=== PATIENT | female | born 1980 | race Two or more races ===

== ENCOUNTER 2019-12-06 08:22 | Emergency (ER) | payer SELFPAY ==
[~2019-12-06] VITALS: Ht 162.6 cm; Wt 90.7 kg
--- NOTE | 2019-12-06 08:40 | NUR ---
ED Nurse Note: patient brought into ED by wheelchair by her co-worker, patient reports she felt ill since 6am this morning, was not feeling like eating, patient reports she felt dizzy and weak, denies any syncopal / episode or fall or trauma. denies history of diabetes and htn. jada's blood sugar was 384, BP 178/118 and HR of 98 taken by co worker RN around 0815. patient is a/o x4 ambulatory, on a hospital gown, on a monitor tech.
[2019-12-06 08:41] VITALS: BP 157/88
--- NOTE | 2019-12-06 08:47 | Emergency Room Report ---
History of Present Illness General Chief Complaint: Dizziness Source: Patient Present Illness HPI Disclaimer: Please note that this report is being documented using DRAGON technology. This can lead to erroneous entry secondary to incorrect interpretation by the dictating instrument. HPI: 39-year-old female with history of depression presents for evaluation of lightheadedness, hyperglycemia and hypertension. Patient states she is been her usual state of health until this morning when she was slightly nauseous and did not eat breakfast. 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 She felt tremulous as well. Denied chills or recent fevers. Denied chest pain, palpitations, vomiting, diarrhea recent dysuria or hematuria. A fingerstick was checked showing elevated blood sugar reading in the 300s. She has no history of diabetes and takes no glucose controlling medication. Does not take antihypertensive medications but to stop blood pressure was found to be 180. She denies headache currently and feels better. PMH: Depression PSH: Denies Allergies: Denies Social Hx: Denies Allergies: Coded Allergies: No Known Allergies (Unverified , 12/06/19) Nursing Documentation-PMH Past Medical History: No Stated History Review of Systems All Other Systems: negative except mentioned in HPI Physical Exam Vital Signs Date Time Temp Pulse Resp B/P (MAP) Pulse Ox O2 Delivery O2 Flow Rate FiO2 12/06/19 08:41 98.0 69 19 157/88 99 Room Air General: Awake and alert, no acute distress HEENT: NC/AT. EOMI. PERRLA. No nystagmus. Moist mucous membranes Cardiovascular: RRR. S1 and S2 normal. No murmur appreciated Resp: Normal work of breathing. No cough, wheezing or crackles appreciated Abdomen: Abdomen is soft, nondistended. Nontender Skin: Intact. No abrasions, laceration or rash over the exposed skin MSK: Normal tone and bulk. Moving all extremities. No obvious deformity. Neuro: Awake and alert. Mentating appropriately. Medical Decision Making Diagnostic Impression: Primary Impression: Hyperglycemia ER Course 39-year-old female presents for evaluation of hypertension, hyperglycemia and lightheadedness. Lightheadedness now improved. She is asymptomatic and feels well though slightly fatigued. No prior history of diabetes or hypertension. Will order EKG, chest x-ray, labs give IV fluids antiemetics. Laboratory Tests Test 12/06/19 09:00 12/06/19 09:55 White Blood Count 7.6 K/UL (4.8-10.8) Red Blood Count 4.93 M/UL (4.20-5.40) Hemoglobin 15.9 G/DL (12.0-16.0) Hematocrit 45.2 % (37.0-47.0) Mean Corpuscular Volume 92 FL (80-99) Mean Corpuscular Hemoglobin 32.2 PG (27.0-31.0) H Mean Corpuscular Hemoglobin Concent 35.1 G/DL (32.0-36.0) Red Cell Distribution Width 11.0 % (11.6-14.8) L Platelet Count 274 K/UL (150-450) Mean Platelet Volume 6.0 FL (6.5-10.1) L Neutrophils (%) (Auto) 60.3 % (45.0-75.0) Lymphocytes (%) (Auto) 32.6 % (20.0-45.0) Monocytes (%) (Auto) 4.8 % (1.0-10.0) Eosinophils (%) (Auto) 1.7 % (0.0-3.0) Basophils (%) (Auto) 0.7 % (0.0-2.0) Sodium Level 140 MMOL/L (136-145) Potassium Level 4.1 MMOL/L (3.5-5.1) Chloride Level 102 MMOL/L (98-107) Carbon Dioxide Level 28 MMOL/L (21-32) Anion Gap 10 mmol/L (5-15) Blood Urea Nitrogen 16 mg/dL (7-18) Creatinine 0.8 MG/DL (0.55-1.30) Estimate Glomerular Filtration Rate > 60 mL/min (>60) Glucose Level 407 MG/DL (74-106) H Calcium Level 9.3 MG/DL (8.5-10.1) Total Bilirubin 0.4 MG/DL (0.2-1.0) Aspartate Amino Transferase (AST) 64 U/L (15-37) H Alanine Aminotransferase (ALT) 137 U/L (12-78) H Alkaline Phosphatase 123 U/L (46-116) H Troponin I 0.022 ng/mL (0.000-0.056) Total Protein 7.4 G/DL (6.4-8.2) Albumin 3.3 G/DL (3.4-5.0) L Globulin 4.1 g/dL Albumin/Globulin Ratio 0.8 (1.0-2.7) L Urine Color Pale yellow Urine Appearance Slightly cloudy Urine pH 5 (4.5-8.0) Urine Specific [place] 1.015 (1.005-1.035) Urine Protein Negative (NEGATIVE) Urine Glucose (UA) 4+ (NEGATIVE) H Urine Ketones 1+ (NEGATIVE) H Urine Blood Negative (NEGATIVE) Urine Nitrite Negative (NEGATIVE) Urine Bilirubin Negative (NEGATIVE) Urine Urobilinogen Normal MG/DL (0.0-1.0) Urine Leukocyte Esterase 1+ (NEGATIVE) H Urine RBC 0-2 /HPF (0 - 2) Urine WBC 2-4 /HPF (0 - 2) Urine Squamous Epithelial Cells Moderate /LPF (NONE/OCC) H Urine Bacteria Moderate /HPF (NONE) H Urine HCG, Qualitative Negative (NEGATIVE) EKG Diagnostic Results EKG Time: 08:33 Rate: normal Rhythm: NSR ST Segments: no acute changes Other Impression Sinus rhythm, normal axis, normal intervals, no ST segment changes. Rhythm Strip Diag. Results Rhythm Strip Time: 08:33 EP Interpretation: yes Rate: 60s Rhythm: NSR, no PVC's, no ectopy Reevaluation Time: 11:05 Last Vital Signs Date Time Temp Pulse Resp B/P (MAP) Pulse Ox O2 Delivery O2 Flow Rate FiO2 12/06/19 08:43 69 19 Room Air 12/06/19 08:41 98.0 157/88 99 Reevaluation Impression Blood sugar confirmed elevated however improved with IV fluids and short dose of insulin. No evidence of urinary tract infection, labs otherwise unremarkable. Blood pressure improved without intervention. Patient has no history of diabetes and not had high blood sugar before. Will start diet modifications and send to PMD for full work-up. Recommended additional outpatient labs. Discussed hypertension as well. She is stable for outpatient follow-up at this time. Will discharge from the emergency department. She can return with any new or worsening symptoms. She understands and agrees with this treatment plan. Disposition: HOME, SELF-CARE Condition: Stable Scripts No Active Prescriptions or Reported Meds Ryan Warner MD Dec 06, 2019 08:47
[2019-12-06 09:15] LABS: BASOPHILS % (AUTO) 0.7 % (0.0-2.0); EOSINOPHILS % (AUTO) 1.7 % (0.0-3.0); HEMATOCRIT 45.2 % (37.0-47.0); HEMOGLOBIN 15.9 G/DL (12.0-16.0); LYMPHOCYTES % (AUTO) 32.6 % (20.0-45.0); MEAN CORPUSCULAR VOLUME 92 FL (80-99); MONOCYTES % (AUTO) 4.8 % (1.0-10.0); NEUTROPHILS % (AUTO) 60.3 % (45.0-75.0); PLATELET COUNT 274 K/UL (150-450); RED BLOOD COUNT 4.93 M/UL (4.20-5.40); WHITE BLOOD COUNT 7.6 K/UL (4.8-10.8)
--- NOTE | 2019-12-06 09:21 | NUR ---
ED Nurse Note: water provided to the patient as Dr. Warner is ok for the patient to drink water.
[2019-12-06 09:33] LABS: ANION GAP 10 mmol/L (5-15); BLOOD UREA NITROGEN 16 mg/dL (7-18); CALCIUM 9.3 MG/DL (8.5-10.1); CARBON DIOXIDE 28 MMOL/L (21-32); CHLORIDE 102 MMOL/L (98-107); CREATININE 0.8 MG/DL (0.55-1.30); POTASSIUM 4.1 MMOL/L (3.5-5.1); SODIUM 140 MMOL/L (136-145)
[2019-12-06 09:38] LABS: ALANINE AMINOTRANSFERASE 137 U/L (12-78); ALBUMIN 3.3 G/DL (3.4-5.0); ALBUMIN/GLOBULIN RATIO 0.8 (1.0-2.7); ALKALINE PHOSPHATASE 123 U/L (46-116); ASPARTATE AMINO TRANSFERASE 64 U/L (15-37); BILIRUBIN,TOTAL 0.4 MG/DL (0.2-1.0)
[2019-12-06] MEDS ORDERED: Insulin Human Regular 100units/ml 3ml IV ONE (09:45)
[2019-12-06 10:23] LABS: APPEARANCE,URINE SLIGHTLY CLOUDY; BILIRUBIN, URINE NEGATIVE (NEGATIVE); COLOR,URINE PALE YELLOW; GLUCOSE, URINE (UA) 4+ (NEGATIVE); KETONES,URINE 1+ (NEGATIVE); LEUKOCYTE ESTERASE ,URINE 1+ (NEGATIVE); NITRITE,URINE NEGATIVE (NEGATIVE); PH,URINE 5 (4.5-8.0); PROTEIN,URINE NEGATIVE (NEGATIVE); UROBILINOGEN,URINE NORMAL MG/DL (0.0-1.0)
[2019-12-06 11:12] VITALS: BP 133/91
[2019-12-06] MEDS ORDERED: Insulin Human Regular 100units/ml 3ml SUBQ ONE (11:15)
--- NOTE | 2019-12-06 11:20 | NUR ---
ER DISCHARGE NOTE: Patient is cleared to be discharged per ERMD DR MEYER, pt is aox4, on room air, with stable vital signs. pt was given dc and prescription instructions, pt was able to verbalize understanding, pt id band and iv site removed without complications. pt is able to ambulate with steady gait. pt took all belongings.
[2019-12-06 11:32] VITALS: BP 133/91
--- NOTE | 2019-12-06 11:44 | Diagnostic Imaging Report ---
Indication: Dyspnea Comparison: None A single view chest radiograph was obtained. Findings: Cardiomediastinal appearance is within normal limits for age. The lungs are clear. Pulmonary vascularity is appropriate. The diaphragmatic contour is smooth and costophrenic angles are sharp. No pleural effusions are identified. The bones are unremarkable. Impression: No acute findings
[2019-12-10] MEDS ORDERED: CEPHALEXIN500 MG ORAL (13:04)
== END 2019-12-06 11:32 | disposition home or self-care (01) ==
LOC: EMR 09:25
DX: R73.9 Hyperglycemia, unspecified (principal)
CPT/HCPCS: 36415; 71045; 80053; 81003; 81025; 84484; 85025; 87086; 87181; 93005; 96372; 96374; 96375; 99284; J1815; J2405